=== PATIENT | female | born 1965 | race Caucasian/White ===

== ENCOUNTER 2016-12-29 10:49 | Emergency (ER) | payer BC ==
[~2016-12-29] VITALS: Ht 165.1 cm; Wt 55.0 kg
[~2016-12-29 10:49] MED LIST: CIPR500T2 PO; CLON1 PO; GABA250S PO; ULTR50TA PO
[2016-12-29 10:51] VITALS: BP 117/75; PULSE 60; RESP 18; TEMP 99; O2SAT 91
[2016-12-29] MEDS ORDERED: GABA800T PO ×2 (11:28→11:42)
[2016-12-29] MEDS ORDERED: PERM5CRE11 TOPICAL (11:42)
[2016-12-29] MEDS ORDERED: CLIN1CAP5 PO (11:42)
--- NOTE | 2016-12-29 11:43 | PD ---
HPI Chief Complaint: Skin Problem Time Seen by Provider: 11:41 Travel History International Travel<30 days: No Contact w/Intl Traveler<30days: No Traveled to known affect area: No History of Present Illness HPI 51-year-old female presents to emergency Department with complaint of rash to her left arm and right hand since yesterday. She is also requesting a medication refill for gabapentin for her fibromyalgia. She has not taken the gabapentin for 1 week. Says the rash is not itchy. This is painful. Reports having a fever of 100.7 last night. Denies vomiting. Denies new exposure to lotions, soaps, detergents, perfumes, medications, foods, environmental exposures. No one else with similar symptoms. Has tried topical anti-itch cream and Benadryl with minimal relief of symptoms. Says the rash is spreading. Allergies to aspirin, Bactrim, codeine, sulfa. Has no other medical complaints. No other modifying factors or associated signs and symptoms. PFSH Past Medical History Arthritis: Yes Asthma: No Blood Disorders: No Bipolar Disorder: Yes Anxiety: Yes Depression: No Heart Rhythm Problems: No Cancer: Yes (CERVIX) Cardiac Catheterization: No Cardiovascular Problems: No High Cholesterol: No Chemotherapy: No Chest Pain: No Congestive Heart Failure: No COPD: No Cerebrovascular Accident: No Diabetes: No Diminished Hearing: No Endocrine: No Gastrointestinal Disorders: Yes GERD: Yes Genitourinary: No Headaches: Yes Hiatal Hernia: No Hypertension: No Immune Disorder: No Implanted Vascular Access Dvce: No Musculoskeletal: Yes Neurologic: Yes Psychiatric: Yes Reproductive: No Respiratory: No Immunizations Current: Yes Migraines: Yes Radiation Therapy: No Seizures: Yes Sleep Apnea: No Ulcer: Yes : 2 Para: 2 Miscarriage: 0 : 0 Ovarian Cysts: Yes (r ovary removed) Tubal Ligation: Yes Past Surgical History Abdominal Surgery: No Cardiac Surgery: No Coronary Artery Bypass Graft: No Ear Surgery: No Endocrine Surgery: No Eye Surgery: No Genitourinary Surgery: No Gynecologic Surgery: Yes (TUBAL LIGATION) Neurologic Surgery: No Oral Surgery: No Thoracic Surgery: No Other Surgery: Yes Social History Alcohol Use: No Tobacco Use: Yes (1 PPD X 32 YEARS) Substance Use: No Allergies-Medications (Allergen,Severity, Reaction): Coded Allergies: Bactrim (Verified Allergy, Severe, RASH, 05/09/16) Codeine (Verified Allergy, Severe, 05/09/16) Sulfa (Verified Allergy, Severe, RASH, 05/09/16) Aspirin (Verified Adverse Reaction, Intermediate, STOMACH PAIN, 05/09/16) hx ulcer Reported Meds & Prescriptions Reported Meds & Active Scripts Active Gabapentin 800 Mg Tab 800 Mg PO TID 10 Days Clindamycin (Clindamycin HCl) 150 Mg Cap 300 Mg PO Q6H 10 Days Elimite Topical (Permethrin) 5% Cream 1 Applic TOPICAL ONCE Reported Gabapentin 800 Mg Tab 800 Mg PO TID Review of Systems Except as stated in HPI: all other systems reviewed are Neg Physical Exam Narrative GENERAL: Well-nourished, well-developed female patient, in no acute distress; low-grade fever 99.0; nontoxic-appearing SKIN: Warm and dry. Generalized erythremic pimple-like rash to left upper extremity and webbing of his right hand; areas appear excoriated and some with possible signs of infection with erythema; without drainage or edema. Left upper approximately is supple and nontender 2+ radial pulses and sensory intact without edema. HEAD: Atraumatic. Normocephalic. EYES: Pupils equal and round. No scleral icterus. No injection or drainage. ENT: Mucosa pink and moist. Airway patent. NECK: Trachea midline. CARDIOVASCULAR: Regular rate. RESPIRATORY: No accessory muscle use. GASTROINTESTINAL: Flat. MUSCULOSKELETAL: No obvious deformities. No clubbing. No cyanosis. No edema. NEUROLOGICAL: Awake and alert. Oriented 3. No obvious cranial nerve deficits. Motor grossly within normal limits. Normal speech. PSYCHIATRIC: Appropriate mood and affect; insight and judgment normal. Data Data Last Documented VS Vital Signs Date Time Temp Pulse Resp B/P Pulse Ox O2 Delivery O2 Flow Rate FiO2 12/29/16 10:51 99.0 60 18 117/75 91 MDM Medical Decision Making Medical Screen Exam Complete: Yes Emergency Medical Condition: Yes Medical Record Reviewed: Yes Differential Diagnosis Scabies rash, contact dermatitis, medication refill Narrative Course 51-year-old female with possible scabies rash to the left upper extremity and webbing of the right hand. Reports fever 100.7 last night. Patient has low- grade fever of 99.0 in the ER. Patient is nontoxic-appearing. I will prescribe antibiotics for reported fever and some mild erythema surrounding some of the excoriated areas to the left upper extremity. Elimite cream, clindamycin prescribed for home. Instructed patient follow-up with dermatology as needed. Patient verbalizes understanding and agreement with treatment plan. Patient is medically cleared and stable for discharge. Discussed reasons to return to the emergency department. Instructed patient to follow up with primary care provider. Patient agrees with treatment plan. The patients vital signs are stable and the patient is stable for outpatient follow-up and treatment. Patient discharged home, stable and in no acute distress. Diagnosis Primary Impression: Rash and nonspecific skin eruption Referrals: [employer] Primary Care Physician Patient Instructions: Acute Rash (ED), General Instructions, Medication Refill , ED, Scabies (ED) Additional Instructions: Elimite cream as directed; repeat in one week as needed Soaking in cool water or apply cool, wet washcloths to irritated areas to minimize itching Apply anti-itch creams, such as calamine lotion, to relieve pain and itching as needed [id number] antihistamines as needed and as directed to relieve allergic symptoms caused by scabies Wash all pillows, linens, blankets, etc. in hot water and dry in hot dryer Bag and all unwashable linens, [place] stuffed animals, etc. 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
== END 2016-12-29 13:04 | disposition home or self-care (01) ==
LOC: NEPK 10:49
DX: R21 Rash and other nonspecific skin eruption (principal); K21.9 Gastro-esophageal reflux disease without esophagitis; F17.210 Nicotine dependence, cigarettes, uncomplicated
CPT/HCPCS: 99283